=== PATIENT | female | born 1995 | race Two or more races ===

== ENCOUNTER 2024-11-08 09:05 | Emergency (ER) | payer OTHER ==
[~2024-11-08] VITALS: Ht 162.6 cm; Wt 55.8 kg
[2024-11-08 11:11] LABS: HEMOGLOBIN 11.6 g/dL (12.0-15.00); MEAN CELL VOLUME 70.7 fL (80.00-100.00); MEAN CORPUSCULAR HEMOGLOBIN 22.8 pg (27.00-32.0); MEAN CORPUSCULAR HGB CONC 32.2 g/dl (32.0-36.0); PLATELET COUNT 193 K/uL (150-450); RED BLOOD COUNT 5.09 M/uL (4.00-6.00); RED CELL DISTRIBUTION WIDTH 14.3 % (11.5-14.5)
[2024-11-08 11:18] LABS: PH,URINE 6.5 (5.0-8.0); URINE APPEARANCE Turbid; URINE BILIRRUBIN Negative (NEGATIVE); URINE BLOOD Small; URINE GLUCOSE Negative (NEGATIVE); URINE KETONE 15 (NEGATIVE); URINE LEUKOCYTE Moderate; URINE NITRATE Error; URINE PROTEIN Trace (NEGATIVE); URINE UROBILINOGEN 0.2 E.U./dl
[2024-11-08 11:19] LABS: URINE EPITHELIAL CELLS 53.6 uL (0.0-38.8); URINE RBC 977.9 uL (0.0-20.8); URINE WBC 394.2 uL (0.0-23.2)
[2024-11-08 11:42] LABS: CALCIUM 9.1 mg/dL (8.5-10.1); CREATININE SERUM 0.75 mg/dL (0.55-1.02); GFR 90.13; POTASSIUM 3.92 mEq/L (3.5-5.1)
[2024-11-08 13:53] LABS: URINE BACTERIA > 9821.5 uL (0.0-1933); URINE CAST 0.44 uL (0.0-1.40)
[2024-11-08 13:55] LABS: URINE CRYSTALS MODERATE /HPF
== END 2024-11-08 14:56 | disposition home or self-care (01) ==
LOC: ER 09:07
PROVIDERS: General Practice
DX: R30.0 Dysuria (principal); N39.0 Urinary tract infection, site not specified